=== PATIENT | male | born 1965 | race Hispanic/Latino ===

== ENCOUNTER 2016-07-15 08:09 | Day surgery (SDC) | payer OTHER ==
[2016-07-15] MEDS ORDERED: Lactated Ringer's 500 ML IV ONE (08:25)
[2016-07-15 08:44] VITALS: O2SAT 96
[2016-07-15] MEDS ORDERED: Propofol 10 mg/ml Inj (20 ML) ONE (09:14)
[2016-07-15 10:51] VITALS: BP 113/68; PULSE 70; RESP 16; TEMP 97
== END 2016-07-15 11:00 | disposition home or self-care (01) ==
LOC: H.ENDO 08:09
PROVIDERS: ATTEND Internal Medicine Gastroenterology
DX: Z12.11 Encounter for screening for malignant neoplasm of colon (principal); K64.8 Other hemorrhoids

== ENCOUNTER 2016-11-28 16:57 | Emergency (ER) | payer OTHER ==
[2016-11-28 17:16] VITALS: BP 139/90; PULSE 78; RESP 16; TEMP 97.4; O2SAT 97
[2016-11-28] MEDS ORDERED: Lidocaine 5% Patch TD STA (17:41)
[2016-11-28] MEDS ORDERED: Lidocaine 5% Patch TD ONE (18:18)
--- NOTE | 2016-11-28 18:49 | RAD ---
HISTORY: pain COMPARISON: No prior. FINDINGS: BONES: Alignment maintained. No fracture. DISC SPACES: Normal. SOFT TISSUES: Normal. OTHER FINDINGS: None. IMPRESSION: Normal radiographs of the thoracic spine.
--- NOTE | 2016-11-28 18:50 | RAD ---
PROCEDURE: Cervical Spine Radiographs. HISTORY: Pain. COMPARISON: None. FINDINGS: BONES: No evidence of fracture. Mild dextroscoliosis. No listhesis. DISC SPACES: Narrowing of the C6-7 disc space consistent with degenerative disc disease. The remaining intervertebral disc spaces are maintained in height. SOFT TISSUES: Normal. No prevertebral soft tissue swelling. OTHER FINDINGS: None. IMPRESSION: No evidence of fracture. Degenerative disc disease C6-7. Mild dextroscoliosis.
--- NOTE | 2016-11-28 18:56 | ED PDOC ---
HPI: General Adult Time Seen by Provider: 11/28/16 17:17 Chief Complaint (Nursing): Med Refill Chief Complaint (Provider): Back pain History Per: Patient History/Exam Limitations: no limitations Onset/Duration Of Symptoms: Days Have you had recent travel within the past 21 days to any of the following countries: [place], [place], [place] or [place]?: No Current Symptoms Are (Timing): Still Present Additional History Per: Patient Additional Complaint(s): 51yo male, presents to the ED for evaluation of atraumatic right upper back pain , radiating to his right shoulder and upper arm, present for the past several days. Patient reports 2 days ago, he was given valium and a toradol injection, after which his symptoms improved. He states he walked 2 miles yesterday and this morning when he woke up, he had worsening pain. Patient is also complaining of a right sided neck pain. He denies any trauma, fever, chest pain shortness of breath, rash or palpitations. Past Medical History Reviewed: Historical Data, Nursing Documentation, Vital Signs Vital Signs: Last Vital Signs Temp 97.4 F L 11/28/16 17:09 Pulse 78 11/28/16 17:09 Resp 16 11/28/16 17:09 BP 139/90 11/28/16 17:09 Pulse Ox 97 11/28/16 17:09 - Medical History PMH: Hypercholesterolemia Denies: Chronic Kidney Disease - Surgical History Surgical History: No Surg Hx - Family History Family History: States: No Known Family Hx - Home Medications Home Medications: Ambulatory Orders Medication Instructions Recorded diaZEpam [Valium] 5 mg PO Q8 PRN #6 tab 11/26/16 Cyclobenzaprine [Cyclobenzaprine 10 mg PO Q8 PRN #30 tab 11/28/16 HCl] Lidocaine 5% [Lidoderm] 1 ea TD DAILY PRN #10 patch 11/28/16 Methylprednisolone [Medrol Dose 4 mg PO DAILY #21 mg 11/28/16 Pack (21 tabs)] - Allergies Allergies/Adverse Reactions: Allergies Allergy/AdvReac Type Severity Reaction Status Date / Time NSAIDS (Non-Steroidal AdvReac PAIN Verified 11/26/16 18:09 Anti-Inflamma Review of Systems Constitutional: Negative for: Fever Cardiovascular: Negative for: Chest Pain, Palpitations Respiratory: Negative for: Shortness of Breath Musculoskeletal: Positive for: Neck Pain, Shoulder Pain, Back Pain Skin: Negative for: Rash Physical Exam - Reviewed Nursing Documentation Reviewed: Yes Vital Signs Reviewed: Yes - Physical Exam Appears: Positive for: Non-toxic, No Acute Distress Skin: Positive for: Warm, Dry Neck: Positive for: Supple. Negative for: Normal (patient with right para- cervical muscle spasm; no c-spine tenderness noted) Cardiovascular/Chest: Positive for: Regular Rate, Rhythm Respiratory: Positive for: Normal Breath Sounds. Negative for: Respiratory Distress Back: Positive for: Muscle Spasm (moderate right parascapular muscle spasm). Negative for: Vertebral Tenderness Extremity: Positive for: Normal ROM. Negative for: Deformity, Swelling Neurologic/Psych: Positive for: Alert, Oriented - ECG O2 Sat by Pulse Oximetry: 97 (RA) Pulse Ox Interpretation: Normal Medical Decision Making Medical Decision Making: Time: 1739 Impression: Neck pain, right scapular pain Plan: -- XR C-Spine -- XR T-Spine dorsal -- Flexeril 10 mg PO -- Toradol 60 mg IM -- Lidocaine patch Reassess Time: 1829 XR's reviewed and show no acute disease. Patient given pain medications and informed to follow up. Stable for d/c home. Scribe Attestation: Documented by Ethel Mendoza acting as a scribe for CARMINA Hernandez Provider Attestation: All medical record entries made by the Scribe were at my direction and personally dictated by me. I have reviewed the chart and agree that the record accurately reflects my personal performance of the history, physical exam, medical decision making, and the department course for this patient. I have also personally directed, reviewed, and agree with the discharge instructions and disposition. Disposition - Clinical Impression Clinical Impression: Back pain, Cervical radiculopathy - Disposition Referrals: [facility] [Outside] Gisel Hernandez MD [Staff Provider] - Gume Hughes MD [Staff Provider] - Disposition: Routine/Home Disposition Time: 18:30 Condition: STABLE Prescriptions: Cyclobenzaprine [Cyclobenzaprine HCl] 10 mg PO Q8 PRN #30 tab PRN Reason: Muscle Spasm Lidocaine 5% [Lidoderm] 1 ea TD DAILY PRN #10 patch PRN Reason: pain Methylprednisolone [Medrol Dose Pack (21 tabs)] 4 mg PO DAILY #21 mg Instructions: Cervical Radiculopathy (ED), Muscle Spasm (ED) Forms: [facility] (Bengali) Print Language: KITTITIAN
== END 2016-11-28 19:23 | disposition home or self-care (01) ==
LOC: H.ER 16:57
DX: M54.9 Dorsalgia, unspecified (principal); M54.12 Radiculopathy, cervical region; E78.00 Pure hypercholesterolemia, unspecified
CPT/HCPCS: 72052; 72070; 96372; 99283; J1885